=== PATIENT | female | born 1960 | race Hispanic/Latino ===

== ENCOUNTER 2018-04-11 21:33 | Emergency (ER) | payer MEDICARE ==
[~2018-04-11] VITALS: Ht 160 cm; Wt 57.6 kg
[2018-04-11] MEDS ORDERED: SOMA350 MG PO (22:11)
[2018-04-11] MEDS ORDERED: AMITRIPTYLINE (22:11)
== END 2018-04-11 22:14 | disposition left against medical advice (07) ==
LOC: FSED 21:33
DX: S99.911A Unspecified injury of right ankle, initial encounter (principal)